=== PATIENT | female | born 1990 | race Caucasian/White ===

== ENCOUNTER 2017-07-16 12:00 | Emergency (ER) | payer MEDICAID ==
[2017-07-16 12:07] VITALS: BP 125/78
[2017-07-16] MEDS ORDERED: IBUPROFEN 800 MG TABLET PO STA (13:04)
--- NOTE | 2017-07-16 13:04 | ED Physician Documentation ---
PD HPI HEENT - Stated complaint Stated Complaint: CONGESTION - Chief complaint Chief Complaint: General - History obtained from History obtained from: Patient - History of Present Illness Timing - onset: Last night Timing - details: Still present Location: Throat Associated symptoms: Congestion, Headache - Additional information Additional information: The patient is a 27-year-old female who complains of cough and sore throat that started last night. Her cough is productive of "mucus." She reports associated headache. She denies fever, shortness of breath, nausea or vomiting. Other family members were sick with similar symptoms earlier in the week, and have improved. Review of Systems Constitutional: denies: Fever, Fatigue Eyes: denies: Irritation Ears: denies: Ear pain Nose: reports: Congestion Throat: reports: Sore throat Cardiac: denies: Chest pain / pressure Respiratory: reports: Cough. 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 Cardiovascular: Other - Present Medications Home Medications: Ambulatory Orders Medication Instructions Recorded Confirmed No Known Home Medications [No 07/16/17 07/16/17 Known Home Medications] - Allergies Allergies/Adverse Reactions: Allergies Allergy/AdvReac Type Severity Reaction Status Date / Time No Known Drug Allergies Allergy Verified 07/16/17 12:07 - Social History Does the pt smoke?: No Smoking Status: Never smoker Does the pt drink ETOH?: No Does the pt have substance abuse?: No - Immunizations Immunizations are current?: Yes PD ED PE NORMAL - Vitals Vital signs reviewed: Yes (normal) - General General: Alert and oriented X 3, Well developed/nourished - HEENT HEENT: Atraumatic, EOMI, Ears normal, Moist mucous membranes, Pharynx benign - Neck Neck: Supple, no meningeal sign, No adenopathy, No JVD - Cardiac Cardiac: RRR, No murmur - Respiratory Respiratory: No respiratory distress, Clear bilaterally - Abdomen Abdomen: Soft, Non tender - Back Back: No CVA TTP - Derm Derm: No rash - Extremities Extremities: No edema, No calf tenderness / cord - Neuro Neuro: Alert and oriented X 3, No motor deficit, Normal speech Results - Vitals Vitals: Oxygen O2 Source Room air - Labs Labs: Microbiology 07/16/17 12:25 Group A Strep Throat Culture - Final Throat MIXED OROPHARYNGEAL CARLINE PRESENT. NO BETA STREP PRESENT IN CULTURE. Laboratory Tests 07/16/17 12:25 Group A Strep Rapid Negative PD MEDICAL DECISION MAKING - ED course Complexity details: reviewed results, considered differential, d/w patient ED course: the patient's presentation is most consistent with viral upper respiratory infection with cough. Rapid strep screen is negative. Her presentation does not suggest peritonsillar abscess or pneumonia. Treatment in the emergency department included administration of ibuprofen, 800 mg orally. I discussed with her the expected course of illness, symptomatic treatment and outpatient follow-up, as well as potentially worrisome signs or symptoms that should prompt reevaluation in the emergency department. Departure - Departure Disposition: 01 Home, Self Care Clinical Impression: Viral URI with cough Condition: Stable Instructions: ED URI Viral Follow-Up: [facility] [Provider Group] Comments: You can take Tylenol or ibuprofen if needed for fever or discomfort. Drink plenty of fluids. Follow up with your primary physician within 2 weeks if not completely resolved. Return to the emergency department if you develop increasing difficulty swallowing, increasing difficulty breathing, or otherwise worsening symptoms. Discharge Date/Time: 07/16/17 13:20
[2017-07-16 13:06] LABS: RAPID STREP SCREEN REAGENT QC YELLOW (YELLOW)
[2017-07-16] MEDS ORDERED: IBUPROFEN 800 MG TABLET PO ONE (13:21)
== END 2017-07-16 13:20 | disposition home or self-care (01) ==
LOC: ED 12:00
DX: J06.9 Acute upper respiratory infection, unspecified (principal); B34.9 Viral infection, unspecified; R05 Cough
CPT/HCPCS: 87070; 87430; 99283

== ENCOUNTER 2017-09-20 18:06 | Emergency (ER) | payer MEDICAID ==
--- NOTE | 2017-09-20 19:38 | ED Physician Documentation ---
History of Present Illness - Stated complaint Stated Complaint: LIPS SWELLING - Chief complaint Chief Complaint: Heent - History obtained from History obtained from: Patient - History of Present Illness Timing: Other (About 10 days ago developed cracking at the angular fornices of both lips and now has red and swollen lips throughout. No other skin or hair changes. 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 09/20/17 - Allergies Allergies/Adverse Reactions: Allergies Allergy/AdvReac Type Severity Reaction Status Date / Time No Known Drug Allergies Allergy Verified 09/20/17 18:26 - Social History Does the pt smoke?: No Smoking Status: Never smoker Does the pt drink ETOH?: No Does the pt have substance abuse?: No - Immunizations Immunizations are current?: Yes PD ED PE NORMAL - Vitals Vital signs reviewed: Yes - General General: Alert and oriented X 3, No acute distress - HEENT HEENT: Other (Mild redness and swelling of the lips throughout with some cracking at the angular fornices.) - Neck Neck: Supple, no meningeal sign, No bony TTP - Neuro Neuro: Alert and oriented X 3, Normal speech - Psych Psych: Normal mood, Normal affect Results - Vitals Vitals: Vital Signs - 24 hr 09/20/17 18:25 Temperature 36.5 C Heart Rate 67 Respiratory 16 Rate Blood Pressure 121/67 O2 Saturation 98 Oxygen O2 Source Room air PD MEDICAL DECISION MAKING - ED course ED course: 27-year-old woman with what looks like angular cheilitis. She will be started on a topical antifungal and referred to dermatology. Departure - Departure Disposition: Home, Self Care Clinical Impression: Angular cheilitis Condition: Good Record reviewed to determine appropriate education?: Yes Follow-Up: [facility] [Provider Group] Prescriptions: Clotrimazole 1 appful TP QID #1 cream..g. Comments: If not better in a short time course, call the dermatology office for follow- up. Return if worse.
[2017-09-20 19:44] VITALS: BP 124/88
== END 2017-09-20 19:43 | disposition home or self-care (01) ==
LOC: ED 18:06
DX: K13.0 Diseases of lips (principal)
CPT/HCPCS: 99283

== ENCOUNTER 2018-01-01 08:59 | Emergency (ER) | payer MEDICAID ==
[2018-01-01] MEDS ORDERED: ERYTHROMYCIN OPHTH OINT 1 GM TUBE EACHEYE STA (10:07)
[2018-01-01] MEDS ORDERED: BENZONATATE 100 MG CAPSULE PO STA (10:07)
--- NOTE | 2018-01-01 10:10 | ED Physician Documentation ---
History of Present Illness - Stated complaint Stated Complaint: COUGH/CHEST CONGESTION/RED EYES - Chief complaint Chief Complaint: Resp - Additonal information Additional information: hx from pt 27 f denies preg sick for 5 days cough productive of green sputum and now eye redness and dc no NVD no leg swelling Review of Systems Constitutional: denies: Fever Eyes: reports: Discharge, Irritation Nose: reports: Congestion Respiratory: reports: Cough : denies: Now EGA Musculoskeletal: denies: Extremity swelling PD PAST MEDICAL HISTORY - Past Medical History Past Medical History: No Cardiovascular: None Respiratory: None Neuro: None Endocrine/Autoimmune: None - Past Surgical History 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 09/20/17 Azithromycin [Zithromax] 250 mg PO DAILY #6 tablet 01/01/18 Benzonatate [Tessalon] 100 mg PO TID PRN #20 capsule 01/01/18 Erythromycin Base [Erythromycin] 1 applic OP Q4H #1 tub 01/01/18 guaiFENesin/DEXTROMETHORPHAN 10 ml PO Q6H PRN #120 ml 01/01/18 [Robitussin Dm] - Allergies Allergies/Adverse Reactions: Allergies Allergy/AdvReac Type Severity Reaction Status Date / Time No Known Drug Allergies Allergy Verified 01/01/18 09:17 - Social History Does the pt smoke?: No Smoking Status: Never smoker Does the pt drink ETOH?: No Does the pt have substance abuse?: No - Immunizations Immunizations are current?: Yes PD ED PE NORMAL - Vitals Vital signs reviewed: Yes - General General: Alert and oriented X 3 - HEENT HEENT: Ears normal, Moist mucous membranes, Other (yo eye injection) - Neck Neck: Supple, no meningeal sign - Cardiac Cardiac: RRR - Respiratory Respiratory: No: Clear bilaterally (R mid lung ronchi) - Abdomen Abdomen: Soft, Non tender - Derm Derm: Normal color - Extremities Extremities: No tenderness to palpate, No edema, No calf tenderness / cord - Neuro Neuro: Alert and oriented X 3 Results - Vitals Vitals: Vital Signs - 24 hr 01/01/18 01/01/18 09:15 11:42 Temperature 36.7 C 36.2 C L Heart Rate 98 84 Respiratory 18 16 Rate Blood Pressure 118/72 136/76 H O2 Saturation 100 98 Oxygen O2 Source Room air - Rads (name of study) CXR Radiology: See rad report (per rad report RUL pna) Departure - Departure Disposition: 01 Home, Self Care Clinical Impression: Conjunctivitis Qualifiers: Conjunctivitis type: acute Acute conjunctivitis type: unspecified Laterality: bilateral Qualified Code(s): H10.33 - Unspecified acute conjunctivitis, bilateral Pneumonia Qualifiers: Pneumonia type: due to unspecified organism Laterality: right Lung location: upper lobe of lung Qualified Code(s): J18.1 - Lobar pneumonia, unspecified organism Condition: Good Instructions: ED Pneumonia Adult, ED Conjunctivitis Nonspecific Prescriptions: Azithromycin [Zithromax] 250 mg PO DAILY #6 tablet Benzonatate [Tessalon] 100 mg PO TID PRN #20 capsule PRN Reason: to ease cough Erythromycin Base [Erythromycin] 1 applic OP Q4H #1 tub guaiFENesin/DEXTROMETHORPHAN [Robitussin Dm] 10 ml PO Q6H PRN #120 ml PRN Reason: Cough Comments: The xray shows a right lung pneumonia Please take the antibiotics as prescribed Follow up with your PMD for a recheck and repeat chest xray in about 4-6 weeks Return if worse Forms: Activity restrictions
--- NOTE | 2018-01-01 11:25 | XRAY Preliminary Report ---
Exam: XR CHEST 2 VIEW X-RAY IMPRESSION: Right upper lobe airspace disease consistent with pneumonia. Correlate with clinical find ings. [facility] SITE ID: [id number]
--- NOTE | 2018-01-01 11:26 | XRAY Report ---
EXAM: CHEST RADIOGRAPHY EXAM DATE: 01/01/2018 10:41 AM. CLINICAL HISTORY: Cough, right lung rhonchi. COMPARISON: None. TECHNIQUE: 2 views. FINDINGS: Lungs/Pleura: Patchy right upper lobe anterior segment airspace disease is present, suspicious for pn eumonia. Mediastinum: Heart and mediastinal contours are unremarkable. Other: None. IMPRESSION: Right upper lobe airspace disease consistent with pneumonia. Correlate with clinical find ings. [facility] Referring Provider Line: [phone] SITE ID: [id number]
[2018-01-01 11:43] VITALS: BP 136/76
== END 2018-01-01 12:02 | disposition home or self-care (01) ==
LOC: ED 08:59
DX: J18.9 Pneumonia, unspecified organism (principal); H10.33 Unspecified acute conjunctivitis, bilateral
CPT/HCPCS: 71046; 99283; A9270; J3490

== ENCOUNTER 2018-10-12 14:10 | Emergency (ER) | payer MEDICAID ==
[2018-10-12] MEDS ORDERED: DEXAMETHASONE 10 MG/ML VIAL PO STA (14:36)
--- NOTE | 2018-10-12 14:39 | ED Physician Documentation ---
PD HPI HEENT - Stated complaint Stated Complaint: CONGESTION - Chief complaint Chief Complaint: Heent - History obtained from History obtained from: Patient - History of Present Illness Timing - onset: How many weeks ago (2) Timing - duration: Weeks (2) Timing - details: Gradual onset, Still present Location: Sinuses Improves: Medication Associated symptoms: Congestion, Rhinorrhea, Headache, Cough Similar symptoms before: Diagnosis (sinusitis) Recently seen: Not recently seen - Additional information Additional information: 28-year old female with a prior history of sinus disease has developed a cough over the past 2 weeks and she is now developed pain in her sinuses and cough is worsened she is coughing up yellow and green phlegm. Today she has noticed that she has lost her sense of taste. Review of Systems Constitutional: denies: Fever Eyes: denies: Decreased vision Ears: denies: Ear pain Nose: reports: Rhinorrhea / runny nose, Congestion, Sinus pressure / pain Throat: denies: Sore throat Cardiac: denies: Chest pain / pressure, Palpitations Respiratory: reports: Cough. 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 09/20/17 Azithromycin [Zithromax] 250 mg PO DAILY #6 tablet 01/01/18 Benzonatate [Tessalon] 100 mg PO TID PRN #20 capsule 01/01/18 Erythromycin Base [Erythromycin] 1 applic OP Q4H #1 tub 01/01/18 guaiFENesin/DEXTROMETHORPHAN 10 ml PO Q6H PRN #120 ml 01/01/18 [Robitussin Dm] Amox/Clav 875/125 [Augmentin] 1 each PO Q12H #20 tablet 10/12/18 - Allergies Allergies/Adverse Reactions: Allergies Allergy/AdvReac Type Severity Reaction Status Date / Time No Known Drug Allergies Allergy Verified 10/12/18 14:24 - Social History Does the pt smoke?: No Smoking Status: Never smoker Does the pt drink ETOH?: Yes Does the pt have substance abuse?: No - Immunizations Immunizations are current?: Yes - POLST Patient has POLST: No PD ED PE NORMAL - Vitals Vital signs reviewed: Yes (normal ) - General General: Alert and oriented X 3, No acute distress, Well developed/nourished - HEENT HEENT: Atraumatic, PERRL, EOMI, Ears normal, Moist mucous membranes, Pharynx benign, Dentition benign, Other (sinus point tenderness to the frontal sinuses) - Neck Neck: Supple, no meningeal sign, No bony TTP - Cardiac Cardiac: RRR, No murmur - Respiratory Respiratory: No respiratory distress, Clear bilaterally - Abdomen Abdomen: Soft, Non tender - Back Back: No CVA TTP, No spinal TTP - Derm Derm: Normal color, Warm and dry, No rash - Extremities Extremities: No deformity, No edema - Neuro Neuro: Alert and oriented X 3, shirt sorter 2-12 intact, No motor deficit, No sensory deficit, Normal speech Eye Opening: Spontaneous Motor: Obeys Commands Verbal: Oriented GCS Score: 15 - Psych Psych: Normal mood, Normal affect Results - Vitals Vitals: Vital Signs - 24 hr 10/12/18 14:20 Temperature 36.6 C Heart Rate 78 Respiratory 14 Rate Blood Pressure 126/76 O2 Saturation 97 Oxygen O2 Source Room air PD MEDICAL DECISION MAKING - ED course Complexity details: considered differential, d/w patient ED course: 28-year-old female with cough and congestion has acute frontal sinusitis and she is administered dexamethasone 10 mg orally we will place her on some Augmentin. Departure - Departure Disposition: 01 Home, Self Care Clinical Impression: Sinusitis Qualifiers: Sinusitis location: frontal Chronicity: acute Recurrence: not specified as recurrent Qualified Code(s): J01.10 - Acute frontal sinusitis, unspecified Condition: Stable Instructions: ED Sinusitis Abx Tx Follow-Up: Charlene Medrano ARNP [Primary Care Provider] - Prescriptions: Amox/Clav 875/125 [Augmentin] 1 each PO Q12H #20 tablet
[2018-10-12 14:50] VITALS: BP 115/70
== END 2018-10-12 14:50 | disposition home or self-care (01) ==
LOC: ED 14:10
DX: J01.10 Acute frontal sinusitis, unspecified (principal)
CPT/HCPCS: 99283

== ENCOUNTER 2019-08-21 16:30 | Emergency (ER) | payer MEDICAID ==
[2019-08-21 16:43] VITALS: BP 124/70
--- NOTE | 2019-08-21 17:23 | ED Physician Documentation ---
PD HPI HEENT - Stated complaint Stated Complaint: CONGESTION - CANT TASTE OR HEAR - Chief complaint Chief Complaint: Heent - History obtained from History obtained from: Patient (1 week severe sinus congestion especially on the left, cannot smell or taste. Bilateral ear pain. 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 09/20/17 Azithromycin [Zithromax] 250 mg PO DAILY #6 tablet 01/01/18 Benzonatate [Tessalon] 100 mg PO TID PRN #20 capsule 01/01/18 Erythromycin Base [Erythromycin] 1 applic OP Q4H #1 tub 01/01/18 guaiFENesin/DEXTROMETHORPHAN 10 ml PO Q6H PRN #120 ml 01/01/18 [Robitussin Dm] Amox/Clav 875/125 [Augmentin] 1 each PO Q12H #20 tablet 10/12/18 Amox/Clav 875/125 [Augmentin] 1 each PO Q12H #20 tablet 08/21/19 Guaifenesin/Pseudoephedrne HCl 1 each PO BID PRN #20 tab.er.12h 08/21/19 [Mucinex D ER 600-60 mg Tablet] Mometasone Furoate [Nasonex] 1 spray NS BID #1 spray.pump 08/21/19 Triamcinolone 0.1% Oint [Kenalog 1 gm TOP BID #2 tube 08/21/19 0.1% Oint] - Allergies Allergies/Adverse Reactions: Allergies Allergy/AdvReac Type Severity Reaction Status Date / Time No Known Drug Allergies Allergy Verified 08/21/19 16:40 - Social History Does the pt smoke?: No Smoking Status: Never smoker Does the pt drink ETOH?: Yes Does the pt have substance abuse?: No - Immunizations Immunizations are current?: Yes - POLST Patient has POLST: No PD ED PE NORMAL - Vitals Vital signs reviewed: Yes - General General: Alert and oriented X 3, No acute distress - HEENT HEENT: Other (Quite swollen turbinates on the left and therefore the left nares is occluded. Some tenderness over the left maxillary sinus. Oropharynx and TMs are normal.) - Neck Neck: Supple, no meningeal sign, No bony TTP - Neuro Neuro: Alert and oriented X 3, Normal speech Results - Vitals Vitals: Vital Signs - 24 hr 08/21/19 16:40 Temperature 36.8 C Heart Rate 87 Respiratory 16 Rate Blood Pressure 124/70 O2 Saturation 99 Oxygen O2 Source Room air PD MEDICAL DECISION MAKING - ED course ED course: Secondary complaint of an itchy rash on her legs, looking there she has some tiny little picked at lesions which look inflammatory. No signs of infection. No animals in the house. No sick contacts with same. Departure - Departure Disposition: 01 Home, Self Care Clinical Impression: Maxillary sinusitis, acute Qualifiers: Recurrence: non-recurrent Qualified Code(s): J01.00 - Acute maxillary sinusitis, unspecified Condition: Good Record reviewed to determine appropriate education?: Yes Instructions: ED Sinusitis Abx Tx Follow-Up: [facility] [Provider Group] Prescriptions: Amox/Clav 875/125 [Augmentin] 1 each PO Q12H #20 tablet Guaifenesin/Pseudoephedrne HCl [Mucinex D ER 600-60 mg Tablet] 1 each PO BID PRN #20 tab.er.12h PRN Reason: congestion Mometasone Furoate [Nasonex] 1 spray NS BID #1 spray.pump Triamcinolone 0.1% Oint [Kenalog 0.1% Oint] 1 gm TOP BID #2 tube Comments: Recheck with your doctor in 1 week. For the rash on your legs you can follow-up with a programmer engineering and scientific if not better.
== END 2019-08-21 17:32 | disposition home or self-care (01) ==
LOC: ED 16:30
DX: J01.00 Acute maxillary sinusitis, unspecified (principal); R21 Rash and other nonspecific skin eruption
CPT/HCPCS: 99283

== ENCOUNTER 2019-09-07 07:58 | Emergency (ER) | payer MEDICAID ==
[2019-09-07 08:06] VITALS: BP 121/73
--- NOTE | 2019-09-07 08:11 | ED Physician Documentation ---
PD HPI URI - Stated complaint Stated Complaint: SINUS PX/COUGH/VOMITING - Chief complaint Chief Complaint: Heent - History obtained from History obtained from: Patient - History of Present Illness Timing - onset: How many days ago (3) Timing duration: Days (3) Timing details: Abrupt onset, Still present Associated symptoms: Fever, Nasal congestion, Sinus pain. No: Dyspnea, NVD Contributing factors: No: Sick contact Similar symptoms before: Diagnosis Recently seen: Clinic (Dx with sinusitis and Rx with Augmentin, with brief improvement, then sick again the past several days.) Review of Systems Constitutional: reports: Fever, Chills, Myalgias Nose: reports: Congestion, Sinus pressure / pain Throat: denies: Sore throat Respiratory: reports: Cough. 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 09/20/17 Azithromycin [Zithromax] 250 mg PO DAILY #6 tablet 01/01/18 Benzonatate [Tessalon] 100 mg PO TID PRN #20 capsule 01/01/18 Erythromycin Base [Erythromycin] 1 applic OP Q4H #1 tub 01/01/18 guaiFENesin/DEXTROMETHORPHAN 10 ml PO Q6H PRN #120 ml 01/01/18 [Robitussin Dm] Amox/Clav 875/125 [Augmentin] 1 each PO Q12H #20 tablet 10/12/18 Amox/Clav 875/125 [Augmentin] 1 each PO Q12H #20 tablet 08/21/19 Guaifenesin/Pseudoephedrne HCl 1 each PO BID PRN #20 tab.er.12h 08/21/19 [Mucinex D ER 600-60 mg Tablet] Mometasone Furoate [Nasonex] 1 spray NS BID #1 spray.pump 08/21/19 Triamcinolone 0.1% Oint [Kenalog 1 gm TOP BID #2 tube 08/21/19 0.1% Oint] Azithromycin [Zithromax] 0 mg PO DAILY #6 tablet 09/07/19 Benzonatate [Tessalon Perle] 100 mg PO TID PRN #20 capsule 09/07/19 Cetirizine [ZyrTEC] 10 mg PO DAILY #15 tablet 09/07/19 Ondansetron Odt [Zofran] 4 mg TL Q6H PRN #10 tablet 09/07/19 dexAMETHasone [Decadron] 4 mg PO DAILY #5 tablet 09/07/19 - Allergies Allergies/Adverse Reactions: Allergies Allergy/AdvReac Type Severity Reaction Status Date / Time No Known Drug Allergies Allergy Verified 09/07/19 08:06 - Social History Does the pt smoke?: No Smoking Status: Never smoker Does the pt drink ETOH?: Yes Does the pt have substance abuse?: No - Immunizations Immunizations are current?: Yes - POLST Patient has POLST: No PD ED PE NORMAL - Vitals Vital signs reviewed: Yes - General General: Alert and oriented X 3, No acute distress, Well developed/nourished - HEENT HEENT: Ears normal, Moist mucous membranes, Pharynx benign - Neck Neck: Supple, no meningeal sign, No adenopathy - Cardiac Cardiac: RRR, No murmur - Respiratory Respiratory: Clear bilaterally - Derm Derm: Normal color, Warm and dry - Neuro Neuro: Alert and oriented X 3, No motor deficit, Normal speech Results - Vitals Vitals: Oxygen O2 Source Room air PD MEDICAL DECISION MAKING - ED course Complexity details: reviewed old records, considered differential (could be new URI versus recurrent sinusitis. ), d/w patient Departure - Departure Disposition: 01 Home, Self Care Clinical Impression: Recurrent acute sinusitis Qualifiers: Sinusitis location: unspecified location Qualified Code(s): J01.91 - Acute recurrent sinusitis, unspecified Condition: Stable Record reviewed to determine appropriate education?: Yes Instructions: ED Sinusitis Abx Tx Follow-Up: Charlene Medrano ARNP [Primary Care Provider] - Prescriptions: Azithromycin [Zithromax] 0 mg PO DAILY #6 tablet Benzonatate [Tessalon Perle] 100 mg PO TID PRN #20 capsule PRN Reason: Cough Cetirizine [ZyrTEC] 10 mg PO DAILY #15 tablet dexAMETHasone [Decadron] 4 mg PO DAILY #5 tablet Ondansetron Odt [Zofran] 4 mg TL Q6H PRN #10 tablet PRN Reason: Nausea / Vomiting Comments: Use ondansetron if needed for nausea. Tylenol or ibuprofen for fevers and pains. Tessalon if needed for cough suppression. Zithromax antibiotic and Decadron steroid daily as directed for 5 days. Cetirizine antihistamine twice daily for the first few days and then daily after that to decrease congestion. Recheck if not improving well over the next several days or fully improved by a week. Forms: Activity restrictions Discharge Date/Time: 09/07/19 08:40
[2019-09-07] MEDS ORDERED: CHERRY SYRUP 10 ML UDC PO ONE (08:28)
[2019-09-07] MEDS ORDERED: BENZONATATE 100 MG CAPSULE PO STA (08:28)
[2019-09-07] MEDS ORDERED: CETIRIZINE 10 MG TABLET PO STA (08:28)
[2019-09-07] MEDS ORDERED: DEXAMETHASONE 10 MG/ML VIAL PO STA (08:28)
== END 2019-09-07 08:40 | disposition home or self-care (01) ==
LOC: ED 07:58
DX: J01.91 Acute recurrent sinusitis, unspecified (principal)
CPT/HCPCS: 99283; 99284; A9270